=== PATIENT | female | born 2005 | race Caucasian/White ===

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

== ENCOUNTER 2024-06-19 11:29 | Emergency (ER) | payer MEDICAID, SELFPAY ==
[2024-06-19 11:45] VITALS: BP 119/80; PULSE 96; RESP 18; TEMP 36.7; O2SAT 99; BMI 18.8
[2024-06-19 11:56] LABS: UTC Pregnancy Test, Urine Negative (Negative)
--- NOTE | 2024-06-19 11:57 | ED_ITS ---
Discharge Plan Prescriptions Prescriptions: New fluticasone propionate [Flonase Allergy Relief] 50 mcg/actuation spray,suspe nsion 2 spray intranasal DAILY Qty: 16 0RF Rx Instructions: administer into each nostril daily Referrals Follow up/Referrals: Aryan Escudero MD [Primary Care Provider] - See instructions Activity Restrictions/Add. Instructions Additional Instructions/Restrictions: Use flonase as prescribed See Eye Doctor for exam Make sure to eat 5 small meals daily and small snack before betime if you are concerned your blood sugar is dropping Call and make appointment with your Family Doctor Straight to ER if any life threatening symptoms Over the counter Dramamine may help with dizziness and nausea Clinical Impressions Clinical Impression: test negative Instructions Patient Instructions: Fluticasone Nasal [place], Vertigo Print Language Print Language: Belarusian Discharge ED Provider: Payton Lawrence [facility] General Stated complaint: dizzy, poss preg, low iron Mode of Arrival: Ambulatory Source of Information: Patient Time Seen by Provider: 06/19/24 11:57 Description of Symptoms (Recalled from Triage Doc. by RN): DIZZY, BLURRED VISION, ? PREG HEENT Symptoms (Recalled from RN notes): Yes Resp Symptoms (Recalled from RN notes): No Skin Symptoms (Recalled from RN notes): No MS Symptoms (Recalled from RN notes): No Functional Status (Recalled from RN notes): WNL History of Present Illness Provider Complaint: Patient states that she woke up yesterday and felt dizzy and felt like her vision was blurry and thought it may have been her blood sugar so she eat and she felt much better and they symptoms went away States later on in the day yesterday she had some nausea and she took a vitiamin because when she was with her other child she had similar symptoms to this those helped her after taking the the nausea went away States that this morning she got up to get her son from the crib and felt a little dizzy again but again symptoms disappeared after eating and now feels fine not having any symptoms at this time States that she was concerned she may be so she came in to get checked because these are the same symptoms she had with her last Related Data Previous Rx's ?Medication ?Instructions ?Recorded fluticasone propionate 50 2 spray intranasal DAILY #16 grams 06/19/24 mcg/actuation nasal spray,suspension (Flonase Allergy Relief) Allergies Allergy/AdvReac Type Severity Reaction Status Date / Time amoxicillin (From AUGMENTIN) Allergy Intermediate I-HIVES Verified 11/18/21 13:34 clavulanic acid (From Allergy Intermediate I-HIVES Verified 11/18/21 13:34 AUGMENTIN) Sulfa (Sulfonamide Allergy Intermediate I-HIVES Verified 11/18/21 13:34 Antibiotics) (SULFA (SULFONAMIDE ANTIBIOTICS)) azithromycin (From Zithromax) Allergy Verified 11/18/21 13:34 cephalexin (From Keflex) Allergy Verified 04/18/22 19:41 Worker's Comp Is this a Worker's Comp case?: No [facility] Disclaimer: The information contained in this section may have been updated after the patient was seen, as this information can be updated by other users. Surgical History History of tonsillectomy Social History Smoking Status: Never smoker alcohol intake: never substance use type: denies use current occupational status: other household members: family housing: house ROS Obtained: Yes All systems reviewed & no additional complaints except as documented and Yes Systems reviewed as appropriate & no additional complaints except as documented Constitutional Constitutional: Reports system reviewed and no additional complaints, except as documented, Reports as per HPI, Denies body ache, Denies chills, Denies fever(s) and Denies headache(s) Eyes Eyes: Reports system reviewed and no additional complaints, except as documented, Reports as per HPI and Reports blurry vision (yesterday none now) ENT Ears, Nose, Mouth, and Throat: Reports system reviewed and no additional complaints, except as documented, Reports as per HPI, Reports dizziness (on and off worse with movement at times started yesterday) and Denies headache(s) Cardiovascular Cardiovascular: Reports system reviewed and no additional complaints, except as documented, Reports as per HPI and Denies chest pain Respiratory Respiratory: Reports system reviewed and no additional complaints, except as documented, Reports as per HPI and Denies cough Gastrointestinal Gastrointestingal: Reports system reviewed and no additional complaints, except as documented, as per HPI and nausea Genitourinary Female Genitourinary: Reports system reviewed and no additional complaints, except as documented, Reports as per HPI and Reports other (reports having symptoms she had with previous ) Integumentary/Breasts Skin/Breast: Reports system reviewed and no additional complaints, except as documented and Reports as per HPI Neurologic Neurologic: Reports dizziness (on and off worse with movement at times started yesterday) and Denies headache(s) Physical Exam General General appearance: alert and in no apparent distress Head Head exam: atraumatic and normocephalic Eye Eye exam: Present normal appearance, PERRL and EOMI ENT ENT exam: Present normal exam, normal oropharynx and mucous membranes moist Expanded ENT Exam TM/Canal exam: Bilateral TM: bulging (clear fluid noted no redness) Respiratory Respiratory exam: Present normal lung sounds bilaterally; Absent respiratory distress or wheezes Cardiovascular Cardiovascular exam: Present regular rate, normal rhythm and normal heart sounds Abdominal Exam Abdominal exam: Present soft and normal bowel sounds; Absent distention or tenderness Neurological Exam Neurological exam: Present alert, oriented X3 and normal gait Medical Decision Making Medical Records Screening: Per USPSTF and CDC recommendations, given the prevalence of disease in our region, it is our hospital?s policy to screen for HIV and viral Hepatitis for all patients aged 18 and over and those with ongoing risk factors. Daryn Inquiry Pt receiving controlled substance: No Daryn was queried for this patient: No Vital Signs: 06/19/24 11:45 Temperature 98.1 F Temperature Source Oral Pulse Rate [Left Radial] 96 H Respiratory Rate 18 Blood Pressure [Left Arm] 119/80 Blood Pressure Mean [Left Arm] 93 02 Sat by Pulse Oximetry 99 Lab Data Lab results reviewed: Yes I reviewed the patient's lab results. Lab Results 06/19/24 11:48: [facility] Clinic Negative Medical Decision Narrative: discussed with patient about transfer to the ED for further work up and evaluation and declined not having any symptoms at this time, discussed with patient and patient will see Eye Doctor and eat at least 3-5 small meals a day and follow up with PCP for further testing and evaluation if symptoms continue
[2024-06-19 12:08] VITALS: BP 119/80; PULSE 96; RESP 18; TEMP 36.7
== END 2024-06-19 12:10 | disposition home or self-care (01) ==
PROVIDERS: Emergency Provider Nurse Practitioner; PCP Family Medicine
DX: R42 Dizziness and giddiness (principal)
CPT/HCPCS: 81025; 99213; G0381

== ENCOUNTER 2024-07-03 13:07 | Emergency (ER) | payer MEDICAID, SELFPAY ==
[2024-07-03 13:15] VITALS: BP 113/68; PULSE 98; RESP 20; TEMP 36.4; O2SAT 100; BMI 18.8
--- NOTE | 2024-07-03 13:21 | EXP.UTC ---
Discharge Plan Disposition Patient Disposition: Home, Self-Care Condition: Good Prescriptions Prescriptions: New Vitamin 27 mg iron- 800 mcg tablet 1 tab PO DAILY 30 Days Qty: 30 5RF No Action fluticasone propionate 50 mcg/actuation spray,suspension 1 spray INTRANASAL DAILY Referrals Follow up/Referrals: Aryan Escudero MD [Primary Care Provider] - See instructions Activity Restrictions/Add. Instructions Additional Instructions/Restrictions: Drink plenty of fluids. Start the vitamins as directed. Follow up with your regular doctor. 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 GO TO THE ER FOR ANY WORSENING SYMPTOMS Clinical Impressions Clinical Impression: Instructions Patient Instructions: Diet Print Language Print Language: Greek Discharge ED Provider: Zay Rubio [facility] General Stated complaint: test Time Seen by Provider: 07/03/24 13:21 Related Data Home Medications ?Medication ?Instructions ?Recorded ?Confirmed fluticasone propionate 50 1 spray intranasal DAILY 07/03/24 07/03/24 mcg/actuation nasal spray,suspension Previous Rx's ?Medication ?Instructions ?Recorded vits no.130-ferrous fum 1 tab PO DAILY 30 days #30 tabs 07/03/24 27 mg iron-folic acid 800 mcg tablet ( Vitamin) Allergies Allergy/AdvReac Type Severity Reaction Status Date / Time amoxicillin (From AUGMENTIN) Allergy Intermediate I-HIVES Verified 11/18/21 13:34 clavulanic acid (From Allergy Intermediate I-HIVES Verified 11/18/21 13:34 AUGMENTIN) Sulfa (Sulfonamide Allergy Intermediate I-HIVES Verified 11/18/21 13:34 Antibiotics) (SULFA (SULFONAMIDE ANTIBIOTICS)) azithromycin (From Zithromax) Allergy Verified 11/18/21 13:34 cephalexin (From Keflex) Allergy Verified 04/18/22 19:[address] [facility] Disclaimer: The information contained in this section may have been updated after the patient was seen, as this information can be updated by other users. Surgical History History of tonsillectomy Social History Smoking Status: Never smoker alcohol intake: never substance use type: denies use current occupational status: other Travel in the last 8 weeks: None household members: family housing: house ROS Obtained: Yes All systems reviewed & no additional complaints except as documented Constitutional Constitutional: Denies chills and Denies fever(s) Eyes Eyes: Denies eye discharge ENT Ears, Nose, Mouth, and Throat: Denies dizziness, Denies otalgia and Denies sore throat Cardiovascular Cardiovascular: Denies chest pain Respiratory Respiratory: Denies shortness of breath, Denies chest congestion, Denies cough, Denies stridor and Denies wheezing Gastrointestinal Gastrointestingal: Denies nausea or vomiting Musculoskeletal Musculoskeletal: Reports system reviewed and no additional complaints, except as documented and Denies arthralgias Integumentary/Breasts Skin/Breast: Denies rash Neurologic Neurologic: Denies dizziness and Denies paresthesias Allergic/Immunologic Allergic/Immunologic: Denies wheezing Physical Exam General General appearance: alert and in no apparent distress Head Head exam: atraumatic, normocephalic and normal inspection Eye Eye exam: Present normal appearance, PERRL and EOMI ENT ENT exam: Present normal exam, normal oropharynx, mucous membranes moist, TM's normal bilaterally and normal external ear exam Neck Neck exam: Present normal inspection, full ROM and trachea midline; Absent meningismus or lymphadenopathy Chest Chest inspection: Present normal inspection and symmetric chest wall rise; Absent tenderness Respiratory Respiratory exam: Present normal lung sounds bilaterally; Absent respiratory distress Cardiovascular Cardiovascular exam: Present regular rate and normal rhythm; Absent JVD Abdominal Exam Abdominal exam: Present soft and normal bowel sounds; Absent distention, tenderness or guarding Extremities Exam Extremities exam: Present normal inspection, full ROM and normal capillary refill; Absent calf tenderness Back Exam Back exam: Present normal inspection; Absent tenderness Neurological Exam Neurological exam: Present alert and oriented X3 Psychiatric Psychiatric exam: Present normal affect and normal mood Skin Skin exam: Present warm, dry, intact and normal color Lymphatic Lymphatic Findings: no adenopathy Medical Decision Making Medical Records Medical records reviewed: No I reviewed the patient's medical records. Screening: Per USPSTF and CDC recommendations, given the prevalence of disease in our region, it is our hospital?s policy to screen for HIV and viral Hepatitis for all patients aged 18 and over and those with ongoing risk factors. Daryn Inquiry Pt receiving controlled substance: No Lab Data Lab results reviewed: Yes I reviewed the patient's lab results.
[2024-07-03 13:31] LABS: UTC Pregnancy Test, Urine Positive (Negative)
[2024-07-03 14:19] VITALS: BP 113/68; PULSE 98; RESP 20; TEMP 36.4; O2SAT 100
== END 2024-07-03 14:22 | disposition home or self-care (01) ==
PROVIDERS: Emergency Provider Nurse Practitioner Family; PCP Family Medicine
DX: Z32.00 Encounter for pregnancy test, result unknown (principal)
CPT/HCPCS: 81025; 99213; G0381

== ENCOUNTER 2024-07-14 20:48 | Emergency (ER) | payer MEDICAID, SELFPAY ==
--- NOTE | 2024-07-14 21:25 | HMH.EDGENADL ---
Discharge Plan Disposition Patient Disposition: Home, Self-Care Prescriptions Prescriptions: No Action fluticasone propionate 50 mcg/actuation spray,suspension 1 spray INTRANASAL DAILY Vitamin 27 mg iron- 800 mcg tablet 1 tab PO DAILY 30 Days Qty: 30 5RF Referrals Follow up/Referrals: Aryan Escudero MD [Primary Care Provider] - See instructions Activity Restrictions/Add. Instructions Additional Instructions/Restrictions: As discussed your symptoms are consistent with a viral upper respiratory infection to comprehensive viral panel has been sent you may follow-up later this evening or on your portal with results. Given the fact that you are if you are positive for the flu we would consider antiviral therapy please call back for discussion of that comes back positive we will keep an eye on this as well. But we do not need to wait for the results. Supportive care including Tylenol saline spray suction humidifier he may use. Clinical Impressions Clinical Impression: URI (upper respiratory infection) Print Language Print Language: Belarusian Discharge ED Provider: Nataly Sneed General Adult HPI General Stated complaint: Fever,sore throat Time Seen by Provider: 07/14/24 20:49 History of Present Illness HPI narrative: Patient is a 19-year-old female who is accompanied by her son who had similar symptoms today. She states that she has had a cough congestion sore throat and fever. She denies any significant past medical history but is currently . Denies any under lying cardiopulmonary disease. She has no history of any vaccinations including the flu. Related Data Home Medications ?Medication ?Instructions ?Recorded ?Confirmed fluticasone propionate 50 1 spray intranasal DAILY 07/03/24 07/03/24 mcg/actuation nasal spray,suspension Previous Rx's ?Medication ?Instructions ?Recorded vits no.130-ferrous fum 1 tab PO DAILY 30 days #30 tabs 07/03/24 27 mg iron-folic acid 800 mcg tablet ( Vitamin) Allergies Allergy/AdvReac Type Severity Reaction Status Date / Time amoxicillin (From AUGMENTIN) Allergy Intermediate I-HIVES Verified 11/18/21 13:34 clavulanic acid (From Allergy Intermediate I-HIVES Verified 11/18/21 13:34 AUGMENTIN) Sulfa (Sulfonamide Allergy Intermediate I-HIVES Verified 11/18/21 13:34 Antibiotics) (SULFA (SULFONAMIDE ANTIBIOTICS)) azithromycin (From Zithromax) Allergy Verified 11/18/21 13:34 cephalexin (From Keflex) Allergy Verified 04/18/22 19:41 [facility] Disclaimer: The information contained in this section may have been updated after the patient was seen, as this information can be updated by other users. Surgical History History of tonsillectomy Social History Smoking Status: Never smoker alcohol intake: never substance use type: denies use current occupational status: other Travel in the last 8 weeks: None household members: family housing: house Have you lived/traveled outside US in past 30 days?: No Contact w/someone who lives/traveled outside US past 30 days?: No Exposure to someone with infectious disease in past 14 days?: No Do you have a fever (greater than 100.4 F or 38 C)?: No Have you tested positive for COVID-19: No Exposed to someone with COVID-19 in past 14 days?: No Do you have a sore throat?: Yes Do you have a cough?: Yes Do you have any weakness?: No Do you have any diarrhea?: No Are you experiencing any unusual bleeding?: No Do you have any muscle aches/pain?: No Do you have any abdominal pain?: No Are you experiencing loss of taste or smell?: No Other Medical History Have you received the Flu Vaccine for this season: No Have you received the Pneumonia Vaccine: No ROS Obtained: Yes All systems reviewed & no additional complaints except as documented Physical Exam General General appearance: alert and in no apparent distress Respiratory Respiratory exam: Absent respiratory distress Cardiovascular Cardiovascular exam: Present regular rate Neurological Exam Neurological exam: Present alert and oriented X3 Medical Decision Making Medical Records Screening: Per USPSTF and CDC recommendations, given the prevalence of disease in our region, it is our hospital?s policy to screen for HIV and viral Hepatitis for all patients aged 18 and over and those with ongoing risk factors. Daryn Inquiry Pt receiving controlled substance: No Orders (Tests/Meds): ORDERS Category Date Time Status Full Resp Panel w/COVID ([facility]) Routine Lab 07/14/24 21:14 Ordered Medical Decision Narrative: Very well-appearing 19-year-old female presents today with viral URI symptoms accompanied by her son who has the same symptoms and is also a patient. Given the fact that she is we will get a respiratory viral panel is determine the exact etiology this may be helpful in her particular situation particular she has the flu. She has been advised to follow-up on these results on her portal or to call back with results I would consider antiviral medications if she is positive for the flu. She looks very well and none toxic does not consistent with bacterial infection she has been vies to take supportive care including Tylenol in the setting of her . She was discharged in stable condition with advised to follow-up on her respiratory viral panel and return with any worsening of her symptoms. Critical Care Critical Care Time Critical Care Time: No
[2024-07-14 21:33] LABS: Adenovirus,PCR Not Detected (NotDetected); Bordetella Pertussis Not Detected (NotDetected); Chlamydophila Pneumoniae, PCR Not Detected (NotDetected); Coronavirus 19, PCR Not Detected (NotDetected); Coronavirus 229E Not Detected (NotDetected); Coronavirus NL63 Not Detected (NotDetected); Coronavirus OC43 Not Detected (NotDetected); Coronovirus HKU1,PCR Not Detected (NotDetected); Human Metapneumovirus Not Detected (NotDetected); Influenza A, PCR Not Detected (NotDetected); Influenza AH1, 2009 Not Detected (NotDetected); Influenza AH1, PCR Not Detected (NotDetected); Influenza B, PCR Not Detected (NotDetected); Mycoplasma Pneumoniae, PCR Not Detected (NotDetected); Parainfluenza 1, PCR Not Detected (NotDetected); Parainfluenza 2, PCR Not Detected (NotDetected); Parainfluenza 3, PCR Not Detected (NotDetected); Parainfluenza 4, PCR Not Detected (NotDetected); Respiratory Syncytial Virus Not Detected (NotDetected); Rhinovirus/Enterovirus Not Detected (NotDetected)
[2024-07-14 21:46] VITALS: BP 120/78; PULSE 127; RESP 18; TEMP 36.9; O2SAT 97
[2024-07-14 22:50] LABS: Influenza AH3,PCR Detected (NotDetected)
== END 2024-07-14 21:46 | disposition home or self-care (01) ==
PROVIDERS: Emergency Provider Student in an Organized Health Care Education/Training Program; PCP Family Medicine
DX: J10.1 Influenza due to other identified influenza virus with other respiratory manifestations (principal); R50.9 Fever, unspecified; R05.9 Cough, unspecified; R09.81 Nasal congestion
CPT/HCPCS: 87633; 99283